=== PATIENT | male | born 1990 | race African-American/Black ===

== ENCOUNTER 2023-09-28 11:16 | Emergency (ER) | payer MEDICARE, MEDICAID ==
[~2023-09-28] VITALS: Ht 180.3 cm; Wt 200.0 kg
[2023-09-28 11:55] VITALS: BP 144/85; PULSE 87; RESP 18; TEMP 98.2
== END 2023-09-28 13:45 | disposition home or self-care (01) ==
LOC: EMS 13:34
DX: H53.141 Visual discomfort, right eye (principal); F17.210 Nicotine dependence, cigarettes, uncomplicated
CPT/HCPCS: 99282; Z7502